=== PATIENT | female | born 1995 | race Caucasian/White ===

== ENCOUNTER 2022-08-16 20:38 | Emergency (ER) | payer MEDICAID, SELFPAY ==
[2022-08-16 21:13] LABS: Bilirubin Neg (Negative); Blood, Urine Negative (Negative); Clarity Clear (Clear); Glucose, Urine (Dipstick) Normal (Negative); Ketone, Urine Negative (Negative); Leukocyte Negative (Negative); Nitrite Negative (Negative); Protein, Urine (Dipstick) Negative (Neg-Trace); Specific Gravity, Urine 1.015 (1.005-1.030); Urobilinogen Normal mg/dL (Less than 2)
[2022-08-16 21:17] LABS: Pregnancy Test - Urine (BHCG) Negative (Negative); Pregu Control Bar Appear? YES (CONTROL BAR); Specific Gravity 1.015 (1.002-1.036)
[2022-08-16 21:18] LABS: Pregu Control Background? CLEAR/WHITE (CLR/WHITE)
== END 2022-08-16 22:04 | disposition home or self-care (01) ==
LOC: CSHERS 20:38
DX: Z71.1 Person with feared health complaint in whom no diagnosis is made (principal)
CPT/HCPCS: 81003; 81025; 99282